=== PATIENT | female | born 1980 | race Caucasian/White ===

== ENCOUNTER 2017-06-23 20:01 | Emergency (ER) | payer OTHER ==
[~2017-06-23] VITALS: Ht 165.1 cm; Wt 102.4 kg
[~2017-06-23 20:01] MED LIST: MOTRIN400 MG PO; PERCOCET 5/31 TABLET PO
[2017-06-23 20:34] LABS: HEMOGLOBIN 12.6 G/DL (11.9-15.5); MCH 25.6 PG (29.0-34.0); MCHC 33.2 G/DL (30.0-36.0); MCV 77.1 FL (83-99); PLATELET COUNT 277 K/uL (156-360); RBC DIS.WIDTH-CV 14.6 % (11.8-14.6); RBC DIS.WIDTH-SD 40.7 % (39-53); RED BLOOD COUNT 4.93 M/uL (3.80-5.20); WHITE BLOOD COUNT 6.2 K/uL (4.1-10.2)
[2017-06-23 20:48] LABS: CHLORIDE 105 mEq/L (99-109); POTASSIUM 4.3 mEq/L (3.7-5.4); SODIUM 137 mEq/L (136-147)
[2017-06-23 20:50] LABS: GLUCOSE 97 mg/dL (70-99)
[2017-06-23 20:54] LABS: CREATININE 0.7 mg/dL (0.6-1.3); GFR ESTIMATE (CALCULATED) > 59 mL/min/
[2017-06-23 20:55] LABS: UREA NITROGEN (BUN) 10 mg/dL (9-23)
[2017-06-23 20:59] LABS: TROP-I INTERPRETATION NEGATIVE; TROPONIN-I < 0.01 ng/mL (0.0-0.30)
[2017-06-23] MEDS ORDERED: ZITHROMAX Z-PA250 MG PO (22:44)
[2017-06-23] MEDS ORDERED: ROBITUSSIN AC,T10 ML PO (22:44)
[2017-06-23 23:04] VITALS: BP 133/77
== END 2017-06-23 23:05 | disposition home or self-care (01) ==
LOC: EME 20:01
PROVIDERS: Physician Assistant
DX: J18.9 Pneumonia, unspecified organism (principal); Z87.891 Personal history of nicotine dependence; Z90.49 Acquired absence of other specified parts of digestive tract
CPT/HCPCS: 71046; 80048; 84484; 85027; 87502; 93005; 94640; 99281; 99284; J0696